=== PATIENT | male | born 1955 | race Caucasian/White ===

== ENCOUNTER 2018-12-29 21:05 | Emergency (ER) | payer BC ==
[~2018-12-29] VITALS: Ht 177.8 cm; Wt 115.0 kg
[~2018-12-29 21:05] MED LIST: ACET-2047 PO; PROM6.25 PO; PSEU120T12 PO
[2018-12-29 21:11] VITALS: Ht 177.8 cm; Wt 115.0 kg
[2018-12-29] MEDS ORDERED: morphine 4 MG/ML VIAL IV STA (21:19)
[2018-12-29] MEDS ORDERED: ONDANSETRON 4 MG INJ IV STA (21:19)
[2018-12-29] MEDS ORDERED: PIPER-TAZO 3.375 GM IV (PMX) 100 ML IVPB ONE (22:30)
[2018-12-29 23:37] VITALS: BP 124/80; PULSE 77; RESP 19
[2018-12-30] MEDS ORDERED: HYDROCODONE/APAP (10/325) TAB PO ONE
--- NOTE | 2019-01-21 02:02 | ERD ---
ER Documentation Chief Complaint Chief Complaint memo ra from home for scrotal pain / fever, took tylenol / ibuprofen HPI This is a 63-year-old male status post bladder reconstruction surgery brought in by rescue with complaints of scrotal pain and swelling. Denies any fevers or chills. Denies any nausea vomiting. Denies any current complaints. The surgery done at [facility]. ROS All systems reviewed and are negative except as per history of present illness. Medications Home Meds Active Scripts Pseudoephedrine Hcl (Sudafed 12 Hour) 120 Mg Tablet.sa, 120 MG PO DAILY, #10 Prov:FATOU FARAH PA-C 01/20/16 Promethazine w/Codeine* (Phenergan w/Codeine* Syrup) 5 Ml Syrup, 5 ML PO Q4H PRN for COUGH, #120 ML Prov:FATOU FARAH PA-C 01/20/16 Acetaminophen* (Acetaminophen*) 650 Mg Tablet, 650 MG PO Q6H PRN for PAIN AND OR ELEVATED TEMP, #30 TAB Prov:FATOU FARAH PA-C 01/20/16 Allergies Allergies: Coded Allergies: No Known Allergy (Unverified , 12/29/18) PMhx/Soc History of Surgery: Yes (urethral,bladder sx) Hx Miscellaneous Medical Probl: Yes (bladder ca) Hx Alcohol Use: No Hx Substance Use: No Hx Tobacco Use: Yes Smoking Status: Former smoker Physical Exam Physical Exam Const: No acute distress Head: Atraumatic Eyes: Normal Conjunctiva ENT: Normal External Ears, Nose and Mouth. Neck: Full range of motion. No meningismus. Resp: Clear to auscultation bilaterally Cardio: Regular rate and rhythm, no murmurs Abd: Soft, non tender, non distended. Normal bowel sounds Skin: Mild to moderate scrotal swelling with no signs or symptoms of infection Back: No midline or flank tenderness Ext: No cyanosis, or edema Neur: Awake and alert Psych: Normal Mood and Affect Results 24 hrs Laboratory Tests Test 12/29/18 21:41 White Blood Count 11.1 10^3/ul Red Blood Count 2.84 10^6/ul Hemoglobin 8.7 g/dl Hematocrit 27.3 % Mean Corpuscular Volume 96.1 fl Mean Corpuscular Hemoglobin 30.6 pg Mean Corpuscular Hemoglobin Concent 31.9 g/dl Red Cell Distribution Width 14.1 % Platelet Count 273 10^3/UL Mean Platelet Volume 10.1 fl Immature Granulocytes % 0.500 % Neutrophils % 85.3 % Lymphocytes % 7.7 % Monocytes % 5.9 % Eosinophils % 0.3 % Basophils % 0.3 % Nucleated Red Blood Cells % 0.0 /100WBC Immature Granulocytes # 0.050 10^3/ul Neutrophils # 9.5 10^3/ul Lymphocytes # 0.9 10^3/ul Monocytes # 0.7 10^3/ul Eosinophils # 0.0 10^3/ul Basophils # 0.0 10^3/ul Nucleated Red Blood Cells # 0.0 10^3/ul Sodium Level 134 mmol/L Potassium Level 4.2 mmol/L Chloride Level 107 mmol/L Carbon Dioxide Level 18 mmol/L Anion Gap 9 Blood Urea Nitrogen 16 mg/dl Creatinine 1.48 mg/dl Est Glomerular Filtrat Rate mL/min 48 mL/min Glucose Level 113 mg/dl Calcium Level 8.5 mg/dl Total Bilirubin 0.4 mg/dl Direct Bilirubin 0.00 mg/dl Indirect Bilirubin 0.4 mg/dl Aspartate Amino Transf (AST/SGOT) 29 IU/L Alanine Aminotransferase (ALT/SGPT) 33 IU/L Alkaline Phosphatase 68 IU/L Total Protein 6.3 g/dl Albumin 3.1 g/dl Globulin 3.20 g/dl Albumin/Globulin Ratio 0.96 Lipase 74 U/L Current Medications Medications Dose Sig/Marlena Start Time Status Last (Trade) Ordered Route PRN Stop Time Admin Dose Reason Admin Morphine 4 mg ONCE STAT 12/29/18 DC 12/29/18 Sulfate IV 21:19 12/29/18 21:26 (morphine) 21:20 Ondansetron 4 mg ONCE STAT 12/29/18 DC 12/29/18 HCl (Zofran IV 21:19 12/29/18 21:26 Inj) 21:20 Piperacillin 100 ml @ ONCE ONCE 12/29/18 DC 12/29/18 Sod/ 200 mls/hr IVPB 22:30 12/29/18 22:35 Tazobactam 22:59 Sod 1 tab ONCE ONCE 12/30/18 DC Acetaminophen PO 00:00 12/30/18 / 00:00 Hydrocodone Bitart ([place] ()) Procedures/MDM Medical decision makin-year-old male essentially postop pain and swelling. No evidence of strangulation. No other current complaints. He stable for trial of outpatient management. Advised to follow-up with his primary care and surgical physician Departure Diagnosis: Primary Impression: Pain Condition: Stable Patient Instructions: Post Op Wound Check, Infection UNA PISANO Jan 21, 2019 02:02
== END 2018-12-29 23:37 | disposition home or self-care (01) ==
LOC: E/R 21:05
DX: N50.89 Other specified disorders of the male genital organs (principal); R10.9 Unspecified abdominal pain; Z87.891 Personal history of nicotine dependence
CPT/HCPCS: 74176; 80053; 83690; 85025; 87040; 93005; 96374; 96375; J2270; J2405; J2543; Z7502; Z7610

== ENCOUNTER 2019-02-01 16:33 | Observation (INO) | payer MEDICARE, BC ==
[~2019-02-01] VITALS: Ht 170.2 cm; Wt 90.9 kg
[2019-02-01] MEDS ORDERED: CEFEPIME 2GM/50 ML (PMX) 50 ML IVPB STA (16:42)
[2019-02-01] MEDS ORDERED: ACETAMINOPHEN 325 MG TAB PO STA (16:42)
[2019-02-01] MEDS ORDERED: SODIUM CHLORIDE 0.9% 1L BAG IV* STA (16:42)
--- NOTE | 2019-02-01 17:22 | ERD ---
ER Documentation Chief Complaint Chief Complaint fever x4d; vomit x3d. last tylenol 1100 today. hx 'new bladder', card stent HPI 63-year-old male with a history of bladder cancer status post chemotherapy and surgery for removal of bladder presenting with fever for the past 4 days that has been intermittent with associated chills and night sweats. He also complains of nausea with intermittent vomiting for the past 3 days. He has been taking Tylenol for his fever with some improvement. However he is not sure why he is having a fever. He is incontinent of urine since the surgery but denies any burning or pain when urinating. He denies any associated abdominal pain, chest pain, cough, rashes. He is no longer on chemotherapy. ROS All systems reviewed and are negative except as per history of present illness. Medications Home Meds Reported Medications Sennosides* (Senna Lax*) 8.6 Mg Tablet, 1 TAB PO BID, TAB 02/01/19 Sodium Bicarbonate* (Sodium Bicarbonate*) 650 Mg Tablet, 1300 MG PO BID, TAB 02/01/19 Clopidogrel Bisulfate* (Clopidogrel Bisulfate*) 75 Mg Tablet, 75 MG PO DAILY, #30 TAB 02/01/19 Aspirin* (Aspirin* EC) 81 Mg Tablet.dr, 81 MG PO DAILY, TAB 02/01/19 Discontinued Scripts Pseudoephedrine Hcl (Sudafed 12 Hour) 120 Mg Tablet.sa, 120 MG PO DAILY, #10 Prov:FATOU FARAH PA-C 01/20/16 Promethazine w/Codeine* (Phenergan w/Codeine* Syrup) 5 Ml Syrup, 5 ML PO Q4H PRN for COUGH, #120 ML Prov:FATOU FARAH PA-C 01/20/16 Acetaminophen* (Acetaminophen*) 650 Mg Tablet, 650 MG PO Q6H PRN for PAIN AND OR ELEVATED TEMP, #30 TAB Prov:FATOU FARAH PA-C 01/20/16 Allergies Allergies: Coded Allergies: No Known Allergy (Unverified , 02/01/19) PMhx/Soc History of Surgery: Yes (urethral,bladder sx 12/15) Anesthesia Reaction: No Hx Neurological Disorder: No Hx Respiratory Disorders: No Hx Cardiac Disorders: Yes (CAD with stents) Hx Psychiatric Problems: No Hx Miscellaneous Medical Probl: Yes (bladder ca) Hx Alcohol Use: No Hx Substance Use: No Hx Tobacco Use: Yes Smoking Status: Former smoker FmHx Family History: No diabetes Physical Exam Vitals Vital Signs Date Temp Pulse Resp B/P (MAP) Pulse Ox O2 O2 Flow FiO2 Time Delivery Rate 02/01/19 98.2 84 22 115/87 96 Room Air 18:23 (96) 02/01/19 38.3 16:54 02/01/19 100.9 96 16 125/90 100 Room Air 16:50 (102) 02/01/19 100.9 111 16 119/75 98 16:38 (90) Physical Exam Const: No acute distress, nontoxic Head: Atraumatic Eyes: Normal Conjunctiva ENT: Normal External Ears, Nose and Mouth. Neck: Full range of motion. No meningismus. Resp: Clear to auscultation bilaterally Cardio: Tachycardic with regular rhythm, no murmurs Abd: Lower abdominal surgical incision healing well, no surrounding erythema, fluctuance, or induration. Soft, non tender, non distended. Normal bowel sounds : External genitalia normal Skin: Clammy, warm. No petechiae or rashes Back: No midline or flank tenderness Ext: No cyanosis, or edema Neur: Awake and alert Psych: Normal Mood and Affect Result Diagram: 02/01/19 1650 02/01/19 1650 Results 24 hrs Laboratory Tests Test 02/01/19 16:50 02/01/19 17:45 02/01/19 18:34 White Blood Count 13.1 10^3/ul Red Blood Count 4.03 10^6/ul Hemoglobin 11.8 g/dl Hematocrit 35.5 % Mean Corpuscular Volume 88.1 fl Mean Corpuscular Hemoglobin 29.3 pg Mean Corpuscular 33.2 g/dl Hemoglobin Concent Red Cell Distribution Width 14.4 % Platelet Count 254 10^3/UL Mean Platelet Volume 9.7 fl Immature Granulocytes % 0.500 % Neutrophils % 77.2 % Lymphocytes % 11.1 % Monocytes % 10.7 % Eosinophils % 0.3 % Basophils % 0.2 % Nucleated Red Blood Cells % 0.0 /100WBC Immature Granulocytes # 0.060 10^3/ul Neutrophils # 10.1 10^3/ul Lymphocytes # 1.5 10^3/ul Monocytes # 1.4 10^3/ul Eosinophils # 0.0 10^3/ul Basophils # 0.0 10^3/ul Nucleated Red Blood Cells # 0.0 10^3/ul Prothrombin Time 14.1 Sec Prothrombin Time Ratio 1.1 INR International 1.08 Normalized Ratio Activated 31.4 Sec Partial Thromboplast Time Sodium Level 138 mmol/L Potassium Level 4.1 mmol/L Chloride Level 108 mmol/L Carbon Dioxide Level 15 mmol/L Anion Gap 15 Blood Urea Nitrogen 27 mg/dl Creatinine 1.67 mg/dl Est Glomerular Filtrat 41 mL/min Rate mL/min Glucose Level 148 mg/dl POC Venous Lactate 1.3 mmol/L Calcium Level 10.1 mg/dl Total Bilirubin 0.3 mg/dl Direct Bilirubin 0.00 mg/dl Indirect Bilirubin 0.3 mg/dl Aspartate Amino 20 IU/L Transf (AST/SGOT) Alanine 10 IU/L Aminotransferase (ALT/SGPT) Alkaline Phosphatase 84 IU/L Total Protein 8.9 g/dl Albumin 4.4 g/dl Globulin 4.50 g/dl Albumin/Globulin Ratio 0.97 Blood Gas Specimen Source Blood venous Arterial Blood Date Drawn 02/01/2019 6:30:08 PM Arterial Blood Gas VENOUS LINE Puncture Site Alan Test N/A Venous Blood pH 7.310 Venous Blood pCO2 32.1 mmHG (Temp Corrected) Venous Blood pO2 24.6 mmHG (Temp Corrected) Venous Blood HCO3 15.8 mmol/L Venous Blood Oxygen 41.4 mmHG Saturation Venous Blood Base Excess -9.4 mmol/L Venous Blood Total Hemoglobin 11.0 g/dl Venous Blood Oxyhemoglobin 41.1 % Venous Blood Methemoglobin 0.4 % Carboxyhemoglobin 0.3 % Blood Gas Temperature 37.0 C Blood Gas Modality ROOM AIR FiO2 21.0 % Blood Gas Critical Value Sherry WALSH RB Read Back Blood Gas Notified Whom Carmenza RUIZ [employer] Blood Gas Notified Time 02/01/2019 6:40:14 PM Lactic Acid Level 0.9 mmol/L Current Medications Medications Dose Sig/Marlena Start Time Status Last (Trade) Ordered Route PRN Stop Time Admin Dose Reason Admin Sodium 2,600 ml BOLUS OVER 2 02/01/19 DC 02/01/19 Chloride HOURS STAT 16:42 02/01/19 16:54 (NS) IV* 16:43 650 mg ONCE STAT 02/01/19 DC 02/01/19 Acetaminophen PO 16:42 02/01/19 16:54 (Tylenol 16:43 Tab) Cefepime HCl 50 ml @ ONCE STAT 02/01/19 DC 02/01/19 100 mls/hr IVPB 16:42 02/01/19 16:53 17:11 Famotidine 20 mg ONCE ONCE 02/01/19 DC 02/01/19 (Pepcid) PO 18:30 02/01/19 18:39 18:31 Al 30 ml ONCE ONCE 02/01/19 DC 02/01/19 Hydrox/Mg PO 18:30 02/01/19 18:39 Hydrox/Simeth 18:31 icone (Mag-Al Plus) Procedures/MDM EMERGENT LABS AND DIAGNOSTIC STUDIES: Lab Results above were reviewed and interpreted by me. CBC: Leukocytosis, concerning for possible infection CMP: Mild elevation in BUN and creatinine, consistent with mild renal insufficiency. Evidence of acidosis with low CO2. No evidence of clinically significant electrolyte abnormality, hypoglycemia, liver disease, or biliary obstruction Troponin within normal limits, not indicative of cardiac ischemia Lactate within normal limits without evidence of sepsis or tissue hypoperfusion UA: + evidence of infection 12-lead EKG was interpreted by Jarrod Lu MD: Normal Sinus Rhythm Left axis deviation Normal intervals No acute ST or T wave changes suggestive of acute ischemia or STEMI. Radiology Results as interpreted by Radiology below were reviewed by SShayy Lu MD: Chest x-ray shows no acute abnormalities Initial Nursing notes reviewed. Previous Medical Records requested via the Electronic Health Record. EMERGENCY DEPARTMENT COURSE / MEDICAL DECISION MAKING: Admit MDM: Patient presents with fever and nausea. Sepsis work-up was initiated. No evidence of severe sepsis or septic shock. He was found to have a UTI. Labs also showed evidence of acute renal failure with mild acidosis. Patient's infectious symptoms have not stabilized, and the patient is at risk of rapid decompensation. The patient will be admitted for careful hydration, antibiotic therapy, and infectious source control. Accepting Care Team Current data and ongoing care discussed. Admitting Physician: Dr. Garber Critical Care Time: 35 minutes Treatments/Evaluations: Close monitoring and treatment of unstable vital signs, cardiorespiratory, and neurologic status, while maintaining tight balance of fluid, respiratory, and cardiac interventions. This includes the administration of emergency fluid management while maintaining close respiratory support as well as the provision of immediate and broad-spectrum antibiotic therapy, while performing a simultaneous assessment for possible sources in order to direct targeted therapy. This time includes discussing the case with the patient and the patients family.This time also includes the consideration for invasive and chemical support to prevent cardiopulmonary collapse. This time does not include all procedures stated elsewhere in this record. This time also includes reviewing old records, labs and radiological studies. This time includes examining and reexamining the patient. Additionally, this time also includes ar ranging care with admitting and consulting physicians. Departure Diagnosis: Primary Impression: Sepsis Sepsis type: sepsis due to unspecified organism Qualified Codes: A41.9 - Sepsis, unspecified organism Additional Impressions: UTI (urinary tract infection) Urinary tract infection type: acute cystitis Hematuria presence: with hematuria Qualified Codes: N30.01 - Acute cystitis with hematuria Acute renal failure Acute renal failure type: unspecified Qualified Codes: N17.9 - Acute kidney failure, unspecified Metabolic acidosis Condition: DIPAK Wheatley MD Feb 01, 2019 17:22
[2019-02-01] MEDS ORDERED: ASPI-817 PO (17:52)
[2019-02-01] MEDS ORDERED: SODI650T PO (17:53)
[2019-02-01] MEDS ORDERED: CLOP75TA19 PO (17:53)
[2019-02-01] MEDS ORDERED: SENN-120 PO (17:54)
[2019-02-01] MEDS ORDERED: AL HYDROX/MG HYDROX/SIMETH 30 ML CUP PO ONE (18:30)
[2019-02-01] MEDS ORDERED: FAMOTIDINE 20 MG TAB PO ONE (18:30)
[2019-02-01] MEDS ORDERED: ONDANSETRON 4 MG INJ IV PRN ×2 (19:30→22:30)
[2019-02-01] MEDS ORDERED: ACETAMINOPHEN 325 MG TAB PO PRN ×2 (19:30→22:30)
[2019-02-01 20:30] VITALS: Ht 170.2 cm; Wt 90.9 kg
[2019-02-01 22:16] VITALS: BP 102/70; PULSE 72; RESP 20
[2019-02-01] MEDS ORDERED: ALBUTEROL/IPRATROPIUM (NEB) 3 ML AMP HHN PRN (22:30)
[2019-02-01] MEDS ORDERED: NACL 0.9% 3 ML SYG IV SCH (22:30)
[2019-02-01] MEDS: SOD CHLORIDE 0.9% 1,000 ML IV SCH (23:09)
[2019-02-02 02:40] VITALS: BP 135/65; PULSE 95; RESP 18
[2019-02-02 08:00] VITALS: BP 112/63; PULSE 82; RESP 18
--- NOTE | 2019-02-02 08:54 | HP ---
Date/Time of Note Date/Time of Note DATE: 02/02/19 TIME: 08:49 Assessment/Plan VTE Prophylaxis Pharmacological prophylaxis: heparin Lines/Catheters IV Catheter Type (from Nrsg): Peripheral IV Assessment/Plan Assessment/Plan 1. Sepsis: Secondary to UTI -IV antibiotic, IV fluid, follow-up urine/blood culture results 2. Bladder cancer status post surgery on January 18 at [facility] -Patient has an appointment tomorrow at 8 AM and as such requested to be disc harged Result Diagram: 02/02/19 0528 02/02/19 0528 Results 24hrs Laboratory Tests Test 02/01/19 16:50 02/01/19 17:45 02/01/19 18:34 02/01/19 19:20 White Blood Count 13.1 H Red Blood Count 4.03 #L Hemoglobin 11.8 #L Hematocrit 35.5 #L Mean Corpuscular 88.1 Volume Mean Corpuscular 29.3 Hemoglobin Mean Corpuscular 33.2 Hemoglobin Concent Red Cell 14.4 Distribution Width Platelet Count 254 Mean Platelet 9.7 Volume Immature 0.500 H Granulocytes % Neutrophils % 77.2 H Lymphocytes % 11.1 L Monocytes % 10.7 Eosinophils % 0.3 Basophils % 0.2 Nucleated Red 0.0 Blood Cells % Immature 0.060 H Granulocytes # Neutrophils # 10.1 H Lymphocytes # 1.5 Monocytes # 1.4 H Eosinophils # 0.0 Basophils # 0.0 Nucleated Red 0.0 Blood Cells # Prothrombin Time 14.1 Prothrombin Time 1.1 Ratio INR International 1.08 Normalized Ratio Activated 31.[address] Time Sodium Level 138 Potassium Level 4.1 Chloride Level 108 Carbon Dioxide 15 L Level Anion Gap 15 H Blood Urea 27 H Nitrogen Creatinine 1.67 H Est Glomerular 41 L Filtrat Rate mL/min Glucose Level 148 POC Venous Lactate 1.3 Calcium Level 10.1 Total Bilirubin 0.3 Direct Bilirubin 0.00 Indirect Bilirubin 0.3 Aspartate Amino 20 Transf (AST/SGOT) Alanine 10 L Aminotransferase ( ALT/SGPT) Alkaline 84 Phosphatase Total Protein 8.9 H Albumin 4.4 Globulin 4.50 H Albumin/Globulin 0.97 Ratio Blood Gas Specimen Blood venous Source Arterial Blood 02/01/2019 6:30:08 Date Drawn PM Arterial Blood Gas VENOUS LINE Puncture Site Alan Test N/A Venous Blood pH 7.310 L Venous Blood pCO2 32.1 L (Temp Corrected) Venous Blood pO2 24.6 L (Temp Corrected) Venous Blood HCO3 15.8 L Venous Blood 41.4 L Oxygen Saturation Venous Blood Base -9.4 L Excess Venous Blood Total 11.0 Hemoglobin Venous Blood 41.1 Oxyhemoglobin Venous Blood 0.4 Methemoglobin Carboxyhemoglobin 0.3 Blood Gas 37.0 Temperature Blood Gas Modality ROOM AIR FiO2 21.0 Blood Gas Critical E JILLIAN RB Value Read Back Blood Gas Notified Carmenza UMANZORPASQUALE JERNIGANP Whom Blood Gas Notified 02/01/2019 6:40:14 Time PM Lactic Acid Level 0.9 Urine Color YELLOW Urine Clarity CLEAR Urine pH 7.0 Urine Specific 1.009 [place] Urine Ketones NEGATIVE Urine Nitrite NEGATIVE Urine Bilirubin NEGATIVE Urine Urobilinogen NEGATIVE Urine Leukocyte 2+ H Esterase Urine Microscopic 84 H RBC Urine Microscopic 30 H WBC Urine Bacteria FEW A Urine Hemoglobin 3+ H Urine Glucose NEGATIVE Urine Total NEGATIVE Protein Test 02/01/19 21:14 02/02/19 05:28 Lactic Acid Level 0.8 White Blood Count 8.1 # Red Blood Count 3.09 #L Hemoglobin 9.1 #L Hematocrit 26.9 #L Mean Corpuscular 87.1 Volume Mean Corpuscular 29.4 Hemoglobin Mean Corpuscular 33.8 Hemoglobin Concent Red Cell 14.5 Distribution Width Platelet Count 190 # Mean Platelet 10.2 Volume Immature 0.400 Granulocytes % Neutrophils % 73.2 Lymphocytes % 14.0 L Monocytes % 11.5 H Eosinophils % 0.7 Basophils % 0.2 Nucleated Red 0.0 Blood Cells % Immature 0.030 Granulocytes # Neutrophils # 5.9 Lymphocytes # 1.1 Monocytes # 0.9 Eosinophils # 0.1 Basophils # 0.0 Nucleated Red 0.0 Blood Cells # Sodium Level 138 Potassium Level 3.9 Chloride Level 113 H Carbon Dioxide 16 L Level Anion Gap 9 # Blood Urea 20 Nitrogen Creatinine 1.21 Est Glomerular > 60 Filtrat Rate mL/min Glucose Level 111 Calcium Level 9.0 Phosphorus Level 2.0 L Magnesium Level 1.6 L Total Bilirubin 0.3 Direct Bilirubin 0.00 Indirect Bilirubin 0.3 Aspartate Amino 15 Transf (AST/SGOT) Alanine 16 Aminotransferase ( ALT/SGPT) Alkaline 58 Phosphatase Total Protein 6.5 # Albumin 3.2 #L Globulin 3.30 H Albumin/Globulin 0.96 Ratio HPI/ROS Admit Date/Time Admit Date/Time Feb 01, 2019 at 19:14 Hx of Present Illness Patient is a 63-year-old male with a history of bladder cancer status post surgery at [facility] on January 18 presents the ER complaining of fever/chills and micheal phoresis. He denied any dysuria, hematuria. After surgery, patient was placed on Cipro and Macrobid. He was also treated with Rocephin and after that was told to stop his antibiotics. When presented to ER, he was febrile with temperature 100.9, WBC 13,000. UA consistent with UTI. Creatinine 1.67. Patient and the at the bedside denied a history of kidney disease. Patient has an appointment at [facility] tomorrow at 8 AM and as such both patient and requested to be discharged today. PMH/Family/Social Past Medical History Past Surgical Hx: other Family History Significant Family History: no pertinent family hx Social History Alcohol Use: none Smoking Status: Never smoker Drug Use: none Exam Constitutional: other (No acute distress) Head: normocephalic, atraumatic Eyes: EOMI, PERRL Respiratory: clear to auscultation, normal air movement Cardiovascular: regular rate and rhythm Gastrointestinal: soft Extremities: normal pulses Medications Current Medications Ondansetron HCl (Zofran Inj) 4 mg BRIDGE ORDER PRN IV NAUSEA/VOMITING; Start 02/01/19 at 19:30; Stop 02/02/19 at 19:29 Acetaminophen (Tylenol Tab) 650 mg ER BRIDGE PRN PO .MILD PAIN 1-3 OR TEMP; Start 02/01/19 at 19:30; Stop 02/02/19 at 19:29 Sodium Chloride 1,000 ml @ 75 mls/hr [id number] IV Last administered on 02/01/19at 23:09; Admin Dose 75 MLS/HR; Start 02/01/19 at 22:19 IV Flush (NS 3 ml) 3 ml PER PROTOCOL IV ; Start 02/01/19 at 22:30 Ondansetron HCl (Zofran Inj) 4 mg Q6H PRN IV NAUSEA/VOMITING; Start 02/01/19 at 22:30 Acetaminophen (Tylenol Tab) 650 mg Q6H PRN PO .PAIN 1-3 OR TEMP; Start 02/01/19 at 22:30 Albuterol/ Ipratropium (Duoneb) 3 ml Q2H RESP THERAPY PRN HHN SHORTNESS OF BREATH; Start 02/01/19 at 22:30 Aspirin (Halfprin) 81 mg DAILY PO Last administered on 02/02/19 08:47; Admin Dose 81 MG; Start 02/02/19 at 09:00 Clopidogrel Bisulfate (plaVIX) 75 mg DAILY PO Last administered on 02/02/19 08:47; Admin Dose 75 MG; Start 02/02/19 at 09:00 Senna (Senokot) 1 tab BID PO Last administered on 02/02/19 08:47; Admin Dose 1 TAB; Start 02/02/19 at 09:00 Ceftriaxone Sodium 50 ml @ 100 mls/hr DAILY IVPB Last administered on 02/02/19 08:47; Admin Dose 100 MLS/HR; Start 02/02/19 at 09:00 Coded Allergies: No Known Allergy (Unverified , 02/01/19) Social History Smoking Status: Former smoker Exam/Review of Systems Vital Signs Vitals Vital Signs Date Temp Pulse Resp B/P (MAP) Pulse Ox O2 O2 Flow FiO2 Time Delivery Rate 02/02/19 98.7 95 18 135/65 98 02:40 (88) 02/01/19 Room Air 19:46 Intake and Output 02/01/19 02/01/19 02/02/19 1515:00 23:00 07:00 IntakeIntake Total 700 ml OutputOutput Total 500 ml BalanceBalance 200 ml UNA RIVERA MD Feb 02, 2019 08:54
[2019-02-02] MEDS ORDERED: CLOPIDOGREL 75 MG TAB PO SCH (09:00)
[2019-02-02] MEDS ORDERED: ASPIRIN (EC) 81 MG TAB PO SCH (09:00)
[2019-02-02] MEDS ORDERED: CEFTRIAXONE 1 GM/50 ML (PMX) 50 ML IVPB SCH (09:00)
[2019-02-02] MEDS ORDERED: SENNA TAB PO SCH (09:00)
[2019-02-02] MEDS: SOD CHLORIDE 0.9% 1,000 ML IV SCH (12:31)
[2019-02-02 14:00] VITALS: BP 112/65; PULSE 96; RESP 18
--- NOTE | 2019-02-02 14:39 | PDOCDIS ---
Discharge Instructions CONDITION [id number] Patient Condition: [id number] Fair HOME CARE INSTRUCTIONS: [id number] Diet Instructions: [id number] Regular ACTIVITY: [id number] Activity Restrictions: [id number] Slowly Increase Activity Do not Drive FOLLOW UP/APPOINTMENTS Follow-up Plan appt primary & urology 1wk; may call MICRO for urine results: [phone]. ILDEFONSO FANG MD Feb 02, 2019 14:39
[2019-02-02] MEDS ORDERED: ACET325T33 PO (14:41)
[2019-02-02] MEDS ORDERED: CEPH250S33 PO (14:41)
--- NOTE | 2019-02-02 17:15 | DS ---
Date/Time of Note Date/Time of Note DATE: 02/02/19 TIME: 17:12 Discharge Summary Admission/Discharge Info Admit Date/Time Feb 01, 2019 at 19:14 Discharge Date/Time Feb 02, 2019 at 15:30 Patient Condition: Stable Procedures Chest x-ray No acute process Labs/culture: Urine no growth at 24 hours. White count was 13 on admission. Creatinine 1.6. Hx of Present Illness Admitted for fever Hospital Course Hospitalist coverage/hospital course Admitted admitted with fever 100.9. Dysuria hematuria? Recently had bladder surgery. Urine showed nitrite negative but 2+ esterase. RBCs around 60 white cells around 30. Overnight the patient was placed on Rocephin. Creatinine 1.6 on admission. Today 1.0. Patient feels better and wishes to go home. I will send the patient home on cephalosporin. He is instructed to follow-up with his primary and neurology in 1 week. Severe Sepsis, suspected urinary in origin. Stable, discharge on Keflex Bladder cancer, stable follow-up with surgeon Past tobacco COPD? Acute cystitis? Continue/finish antibiotics Acute renal failure CKD stable, discharge Home Meds Active Scripts Cephalexin* (Cephalexin* Susp) 250 Mg/5 Ml Susp.recon, 250 MG PO Q8 for 6 Days, #20 BOTTLE Prov:ILDEFONSO FANG MD 02/02/19 Acetaminophen* (Tylenol*) 325 Mg Tablet, 650 MG PO Q6H PRN for .PAIN 1-3 OR TEMP for 1 Day, #1 TAB Prov:ILDEFONSO FANG MD 02/02/19 Reported Medications Sennosides* (Senna Lax*) 8.6 Mg Tablet, 1 TAB PO BID, TAB 02/01/19 Sodium Bicarbonate* (Sodium Bicarbonate*) 650 Mg Tablet, 1300 MG PO BID, TAB 02/01/19 Clopidogrel Bisulfate* (Clopidogrel Bisulfate*) 75 Mg Tablet, 75 MG PO DAILY, #30 TAB 02/01/19 Aspirin* (Aspirin* EC) 81 Mg Tablet.dr, 81 MG PO DAILY, TAB 02/01/19 Discontinued Scripts Pseudoephedrine Hcl (Sudafed 12 Hour) 120 Mg Tablet.sa, 120 MG PO DAILY, #10 Prov:FATOU FARAH PA-C 01/20/16 Promethazine w/Codeine* (Phenergan w/Codeine* Syrup) 5 Ml Syrup, 5 ML PO Q4H PRN for COUGH, #120 ML Prov:FATOU FARAH PA-C 01/20/16 Acetaminophen* (Acetaminophen*) 650 Mg Tablet, 650 MG PO Q6H PRN for PAIN AND OR ELEVATED TEMP, #30 TAB Prov:FATOU FARAH PA-C 01/20/16 Follow-up Plan appt primary & urology 1wk; may call [facility] for urine results: [phone]. MEDICAL RECORDS: [phone] Primary Care Provider Not On Staff Doctor Time spent on discharge: > 30 minutes Pending Labs Laboratory Tests Test 02/01/19 17:45 02/01/19 18:34 02/01/19 19:20 02/01/19 21:14 Blood Gas Blood venous Specimen Source Arterial Blood 02/01/2019 6:30:0 Date Drawn 8 PM Arterial Blood VENOUS LINE Gas Puncture Site Alan Test N/A Venous Blood 7.310 (7.330-7. pH 430) Venous Blood 32.1 pCO2 mmHG (35-45) (Temp Corrected ) Venous Blood 24.6 pO2 mmHG (25.0-30.0 (Temp Corrected ) ) Venous Blood 15.8 HCO3 mmol/L (22.0-29 .0) Venous Blood 41.4 Oxygen mmHG (55.0-75.0 Saturation ) Venous Blood -9.4 Base Excess mmol/L (-5.0-5. 0) Venous Blood 11.0 g/dl Total Hemoglobin Venous Blood 41.1 % Oxyhemoglobin Venous Blood 0.4 % Methemoglobin Carboxyhemoglob 0.3 % in Blood Gas 37.0 C Temperature Blood Gas ROOM AIR Modality FiO2 21.0 % Blood Gas E JILLIAN RB Critical Value Read Back Blood Gas T JOSEPH [facility] [employer] Notified Whom Blood Gas 02/01/2019 6:40:1 Notified Time 4 PM Lactic Acid 0.9 0.8 Level mmol/L (0.5-2. mmol/L (0.5-2. 0) 0) Urine Color YELLOW (YELLOW ) Urine Clarity CLEAR (CLEAR) Urine pH 7.0 (5.0-9.0) Urine Specific 1.009 (1.003-1 Sharon .030) Urine Ketones NEGATIVE mg/dL (NEGATIV E) Urine Nitrite NEGATIVE mg/dL (NEGATIV E) Urine NEGATIVE Bilirubin mg/dL (NEGATIV E) Urine NEGATIVE Urobilinogen mg/dL (NEGATIV E) Urine Leukocyte 2+ Esterase Eunice/ul (NEGATI VE) Urine 84 /HPF (0-5) Microscopic RBC Urine 30 /HPF (0-5) Microscopic WBC Urine Bacteria FEW /HPF (NONE SEEN) Urine 3+ Hemoglobin mg/dL (NEGATIV E) Urine Glucose NEGATIVE mg/dL (NEGATIV E) Urine Total NEGATIVE Protein mg/dl (NEGATIV E) Test 02/02/19 05:28 White Blood 8.1 Count 10^3/ul (4.8-10 .8) Red Blood 3.09 Count 10^6/ul (4.70-6 .10) Hemoglobin 9.1 g/dl (14.0-18.0 ) Hematocrit 26.9 % (42.0-52.0) Mean 87.1 Corpuscular fl (82.0-101.0) Volume Mean 29.4 Corpuscular pg (29.0-33.0) Hemoglobin Mean 33.8 Corpuscular g/dl (32.0-37.0 Hemoglobin Conc ) ent Red Cell 14.5 Distribution % (11.5-14.5) Width Platelet Count 190 10^3/UL (140-41 5) Mean Platelet 10.2 Volume fl (7.4-10.4) Immature 0.400 Granulocytes % % (0.001-0.429) Neutrophils % 73.2 % (39.0-77.0) Lymphocytes % 14.0 % (15.0-51.0) Monocytes % 11.5 % (0.0-11.0) Eosinophils % 0.7 % (0.0-7.0) Basophils % 0.2 % (0.0-2.0) Nucleated Red 0.0 Blood Cells % /100WBC (0.0-0. 0) Immature 0.030 Granulocytes # 10^3/ul (0.0-0. 031) Neutrophils # 5.9 10^3/ul (1.6-7. 5) Lymphocytes # 1.1 10^3/ul (0.8-2. 9) Monocytes # 0.9 10^3/ul (0.3-0. 9) Eosinophils # 0.1 10^3/ul (0.0-0. 5) Basophils # 0.0 10^3/ul (0.0-0. 1) Nucleated Red 0.0 Blood Cells # 10^3/ul (0.0-0. 0) Sodium Level 138 mmol/L (135-144 ) Potassium 3.9 Level mmol/L (3.5-5.1 ) Chloride Level 113 mmol/L (97-110) Carbon Dioxide 16 Level mmol/L (21-31) Anion Gap 9 (5-13) Blood Urea 20 mg/dl (7-20) Nitrogen Creatinine 1.21 mg/dl (0.61-1.2 4) Est Glomerular > 60 Filtrat mL/min (>60) Rate mL/min Glucose Level 111 mg/dl (70-220) Calcium Level 9.0 mg/dl (8.4-10.2 ) Phosphorus 2.0 Level mg/dl (2.5-4.9) Magnesium 1.6 Level mg/dl (1.7-2.5) Total 0.3 Bilirubin mg/dl (0.2-1.3) Direct 0.00 Bilirubin mg/dl (0.00-0.2 0) Indirect 0.3 Bilirubin mg/dl (0-1.1) Aspartate Amino 15 IU/L (15-46) Transf (AST/SGO T) Alanine 16 IU/L (13-69) Aminotransferas e (ALT/SGPT) Alkaline 58 Phosphatase IU/L (42-121) Total Protein 6.5 g/dl (6.1-8.1) Albumin 3.2 g/dl (3.3-4.9) Globulin 3.30 g/dl (1.3-3.2) Albumin/Globuli 0.96 n Ratio Microbiology Date/Time Source Procedure Growth Status 02/01/19 19:20 Catheter Urine Urine Culture - Preliminary NO GROWTH Resulted AFTER 24 HOURS ILDEFONSO FANG MD Feb 02, 2019 17:15
== END 2019-02-02 15:30 | disposition home or self-care (01) ==
LOC: E/R 16:33 → PP2 19:14
PROVIDERS: ADMIT Internal Medicine; ATTEND Internal Medicine
DX: R65.20 Severe sepsis without septic shock (principal); N39.0 Urinary tract infection, site not specified; I25.10 Atherosclerotic heart disease of native coronary artery without angina pectoris; Z95.5 Presence of coronary angioplasty implant and graft; Z85.51 Personal history of malignant neoplasm of bladder; Z92.21 Personal history of antineoplastic chemotherapy; Z87.891 Personal history of nicotine dependence; Z79.82 Long term (current) use of aspirin
CPT/HCPCS: 36415; 71045; 80053; 81001; 82803; 83605; 83735; 84100; 85025; 85610; 85730; 87040; 87086; 93005; 96374; 99285; A4310; G0378; J0692; J0696; J7030